=== PATIENT | female | born 1985 | race African-American/Black ===

== ENCOUNTER 2021-08-09 10:45 | Emergency (ER) | payer OTHER ==
[~2021-08-09] VITALS: Ht 167.6 cm; Wt 74.8 kg
[2021-08-09 10:58] VITALS: BP 127/81
[2021-08-09] MEDS ORDERED: IBUPROFEN 600 MG TABLET PO ONE (11:00)
[2021-08-09] MEDS ORDERED: IBUPROFEN 600 MG TABLET ONE (11:03)
[2021-08-09] MEDS ORDERED: TRAM50TA2 PO (11:50)
[2021-08-09] MEDS ORDERED: IBUP-1955 PO (11:50)
--- NOTE | 2021-08-09 11:56 | NUR ---
Patient discharged to home in stable condition. Written and verbal after care instructions given. Patient verbalizes understanding of instruction.
== END 2021-08-09 11:56 | disposition home or self-care (01) ==
LOC: ER 10:51
DX: S89.82XA Other specified injuries of left lower leg, initial encounter (principal); X50.1XXA Overexertion from prolonged static or awkward postures, initial encounter; Y93.41 Activity, dancing; Y92.89 Other specified places as the place of occurrence of the external cause; Y99.8 Other external cause status
CPT/HCPCS: 73564-TC